=== PATIENT | female | born 1960 | race Caucasian/White ===

== ENCOUNTER → 2018-10-12 | Outpatient (CLI) | payer OTHER ==
[~2018-10-12] MED LIST: ALPR.5 PO; ATOR40TA PO; Aspirin EC81 MG PO; ESCI10 PO; NAPR500EC PO; Prinivil10 MG PO
[2018-10-14 15:06] LABS: HPV 16 Negative (Negative); HPV 18 Negative (Negative); HPV OTHER HR TYPES Negative (Negative)
== END | disposition home or self-care (01) ==
LOC: LAB SHORT 11:12 → LAB 11:12
PROVIDERS: Nurse Practitioner Obstetrics & Gynecology
DX: Z01.419 Encounter for gynecological examination (general) (routine) without abnormal findings (principal)
CPT/HCPCS: 87624; G0123

== ENCOUNTER → 2019-07-20 | Outpatient (CLI) | payer OTHER | END | disposition home or self-care (01) | LOC: LAB SHORT 15:29 → LAB EV 15:29 | DX: M79.672 Pain in left foot (principal) | CPT/HCPCS: 84550 ==

== ENCOUNTER 2020-04-25 06:38 | Day surgery (SDC) | payer OTHER ==
[~2020-04-25] VITALS: Ht 160 cm; Wt 97.2 kg
[~2020-04-25 06:38] MED LIST changes: +DULO30 PO
--- NOTE | 2020-04-25 06:54 | NUR ---
History, Chart, Medications and Allergies reviewed before start of procedure. Patient confirms NPO status and agrees with scheduled surgery. Son, Archie, at bedside.
--- NOTE | 2020-04-25 07:49 | NUR ---
NASAL SUPERVISOR DRIED YEAST X3 AMPULES USED TO NARES BILAT. KNEE HIGH TINO HOSE AND CALF PAS APPLIED TO RLE. PATIENT UP TO BR TO VOID.
--- NOTE | 2020-04-25 12:46 | NUR ---
04/25/20 1246 Alexandra Singh VERIFICATIONS: EDIT CHART.
--- NOTE | 2020-04-25 17:17 | NUR ---
SHIFT SUMMARY PT A&OX4, VSS, S/P L TKA, AQUACEL/MELLO WRAP CDI, DENIES N&T, TEDS/SCDS/POLAR PHILIP ON. AMBULATES HALLWAY/TO BRP W/FWW & GB; UP TO CHAIR; PHYSICAL THERAPY EVAL'D - SECOND SESSION IN A.M. MANAS PO, DENIES N&V. VOIDING WELL. PAIN MANAGED WITH 5 MG OXYCODONE, TYLENOL AND TORADOL. WILL REPORT TO ONCTARUN SCOTT RN.
[2020-04-26 04:45] LABS: BASOPHILS ABSOLUTE AUTO 0.03 K/mm3 (0.00-0.23); BASOPHILS PERCENT AUTO 0 % (0-2); EOSINOPHILS ABSOLUTE AUTO 0.02 K/mm3 (0.00-0.68); EOSINOPHILS PERCENT AUTO 0 % (0-6); Hematocrit 39.3 % (33.0-51.0); Hemoglobin 12.8 g/dL (11.5-16.0); IMMATURE GRAN ABSOLUTE AUTO 0.02 K/mm3 (0.00-0.10); IMMATURE GRAN PERCENT AUTO 0 % (0-1); LYMPHOCYTES ABSOLUTE AUTO 1.79 K/mm3 (0.84-5.20); LYMPHOCYTES PERCENT AUTO 17 % (21-46); MONOCYTES ABSOLUTE AUTO 0.91 K/mm3 (0.16-1.47); MONOCYTES PERCENT AUTO 9 % (4-13); Mean Corpuscular HGB 31.5 pg (26.0-34.0); Mean Corpuscular HGB Conc 32.6 g/dL (31.5-36.5); Mean Corpuscular Volume 97 fL (80-100); Mean Platelet Volume 10.4 fL (9.1-12.4); NEUTROPHILS ABSOLUTE AUTO 7.88 K/mm3 (1.96-9.15); NEUTROPHILS PERCENT AUTO 74 % (41-73); Platelet Count 239 K/mm3 (150-400); RDW Coefficient Variation 12.2 % (11.7-14.2); RDW Standard Deviation 44.2 fL (35.1-46.3); Red Blood Cell Count 4.06 M/mm3 (3.80-5.20); White Blood Cell Count 10.65 K/mm3 (4.00-11.30)
[2020-04-26 05:07] LABS: Anion Gap 5 mmol/L (6-16); Blood Urea Nitrogen 16 mg/dL (8-24); Bun/Creatinine Ratio 22.2 (12.0-20.0); CO2, Blood 26 mmol/L (21-32); Calcium, Blood 8.5 mg/dL (8.5-10.1); Chloride, Blood 108 mmol/L (98-108); Creatinine, Blood 0.72 mg/dL (0.40-1.00); Glomerular Filtration Rate >60 (60-); Glucose, Blood 136 mg/dL (70-99); Potassium, Blood 4.2 mmol/L (3.5-5.5); Sodium, Blood 139 mmol/L (136-145)
--- NOTE | 2020-04-26 07:15 | NUR ---
SHIFT SUMMARY POD#1. AAOX4. DISCOMFORT CONTROLLED WITH SCHEDULED TORADOL/TYLENOL + ROXICODONE Q4H. NO NAUSEA/EMESIS. DRESSING TO LEFT KNEE C/D/I. UP TO RESTROOM SBA WITH FWW + GAIT BELT. PT RESTED WELL T/O NIGHT. REPORT TO DAY SHIFT RN. DR MA AT BEDSIDE, PT CURRENTLY SITTING UP IN BED WITH CALL LIGHT IN REACH.
[2020-04-26] MEDS ORDERED: Percocet 5-3251 EACH PO (08:55)
--- NOTE | 2020-04-26 11:24 | NUR ---
DISCHARGE PT PROVIDED WITH WRITTEN AND VERBAL DISCHARGE INSTRUCTIONS, SHE REPORTS UNDERSTANDING. PT PROVIDED WITH SCRIPTS AND DRESSINGS. PT ESCORTED OUT IN W/C AND WAS ABLE TO GET INTO VEHICLE WITHOUT DIFFICULTY.
== END 2020-04-26 10:50 | disposition home or self-care (01) ==
LOC: ORSCMMR 06:38 → SURS 11:19 → ORSCMMR 12:15 → ORD 12:15 → ORSCMMR 04-26 10:50
PROVIDERS: Orthopaedic Surgery
PROC: 0SRD0JA Replacement of Left Knee Joint with Synthetic Substitute, Uncemented, Open Approach (ICD-10-PCS; principal; 2020-04-25 08:15)
DX: M17.12 Unilateral primary osteoarthritis, left knee (principal); I10 Essential (primary) hypertension; E78.00 Pure hypercholesterolemia, unspecified; E66.01 Morbid (severe) obesity due to excess calories; Z68.38 Body mass index [BMI] 38.0-38.9, adult; F32.9 Major depressive disorder, single episode, unspecified; Z79.899 Other long term (current) drug therapy; Z79.82 Long term (current) use of aspirin
CPT/HCPCS: 36415; 73560-LT; 80048; 85025; 88300; 97110; 97116; 97161; 97530; A9270; A9270-GY; C1776; J0171; J0690; J0735; J1885; J2250; J2370; J2704; J2795; J3010; J7120

== ENCOUNTER 2020-08-22 08:13 | Day surgery (SDC) | payer OTHER, SELFPAY ==
[~2020-08-22] VITALS: Ht 160 cm; Wt 95.0 kg
[~2020-08-22 08:13] MED LIST changes: +ASPI81CH PO; +Percocet 5-3251 EACH PO
--- NOTE | 2020-08-22 09:51 | NUR ---
Ambulatory in Day Surgery Surgical site prepped with 2% Chlorhexidine cloth wipe. History, Chart, Medications and Allergies reviewed before start of procedure.Lungs clear T/O to Auscultation. Patient confirms NPO status and agrees with scheduled surgery. PT UP TO THE BATHROOM AT 0951. TOOK ALL OREDERED PO MEDS WITH A SIP OF WTER. PT STATES SHE FEELS LESS ANXIOUS AT THIS TIME. PROVIDED A CALM AND RELAXING ENVIRONMENT.
--- NOTE | 2020-08-22 18:36 | NUR ---
SHIFT SUMMARY PT IS POD#0 FROM R TKA WITH DR. CORONADO. PAIN HAS BEEN MANAGED WITH PO PAIN MEDICATION. PT WORKED WITH THERAPY TODAY. PT TOLERATING PO. PT HAS VOIDED. BP HAS BEEN LOW NORMAL AND PT HAS BEEN ASYMPTOMATIC, PT HAS LR FOR MAINTENANCE FLUID. PT ENCOURAGED TO DRINK FLUIDS. VSS. WILL MONITOR UNTIL REPORT TO SONIA BAER.
[2020-08-23 04:23] LABS: BASOPHILS ABSOLUTE AUTO 0.04 K/mm3 (0.00-0.23); BASOPHILS PERCENT AUTO 1 % (0-2); EOSINOPHILS ABSOLUTE AUTO 0.22 K/mm3 (0.00-0.68); EOSINOPHILS PERCENT AUTO 4 % (0-6); Hematocrit 37.1 % (33.0-51.0); IMMATURE GRAN ABSOLUTE AUTO 0.01 K/mm3 (0.00-0.10); IMMATURE GRAN PERCENT AUTO 0 % (0-1); LYMPHOCYTES ABSOLUTE AUTO 1.78 K/mm3 (0.84-5.20); LYMPHOCYTES PERCENT AUTO 29 % (21-46); MONOCYTES ABSOLUTE AUTO 0.67 K/mm3 (0.16-1.47); MONOCYTES PERCENT AUTO 11 % (4-13); Mean Corpuscular HGB 30.8 pg (26.0-34.0); Mean Corpuscular HGB Conc 32.3 g/dL (31.5-36.5); Mean Corpuscular Volume 95 fL (80-100); Mean Platelet Volume 9.8 fL (9.1-12.4); NEUTROPHILS ABSOLUTE AUTO 3.47 K/mm3 (1.96-9.15); NEUTROPHILS PERCENT AUTO 56 % (41-73); Platelet Count 205 K/mm3 (150-400); RDW Coefficient Variation 14.6 % (11.7-14.2); RDW Standard Deviation 51.8 fL (35.1-46.3); White Blood Cell Count 6.19 K/mm3 (4.00-11.30)
[2020-08-23 04:40] LABS: Anion Gap 5 mmol/L (6-16); Blood Urea Nitrogen 14 mg/dL (8-24); Bun/Creatinine Ratio 18.6 (12.0-20.0); CO2, Blood 28 mmol/L (21-32); Calcium, Blood 8.2 mg/dL (8.5-10.1); Chloride, Blood 107 mmol/L (98-108); Creatinine, Blood 0.75 mg/dL (0.40-1.00); Glomerular Filtration Rate >60 (60-); Glucose, Blood 110 mg/dL (70-99); Sodium, Blood 140 mmol/L (136-145)
--- NOTE | 2020-08-23 05:43 | NUR ---
SHIFT SUMMARY LYING IN SEMI FOWLERS WITH EYES CLOSED, HAS RESTED WELL THROUGHOUT SHIFT. MEDICATED FOR PAIN WITH OXY X1. POLAR PHILIP IN PLACE TO SURGICAL SITE AND PT REPOSITIONES FOR COMFORT. ASSISTED TO BATHROOM SEVERAL TIMES TO URINATE. LEFT FA SL PIV IS PATENT, FLUSHES WITH EASE. AQUACEL AND MELLO WRAP TO RIGHT KNEE ARE C/D/I. GOOD DISTAL PULSES NOTED. ABLE TO WIGGLE TOES WITH EASE. DENIES FURTHER NEEDS OR WANTS AT THIS TIME. SAFETY MEASURES IN PLACE. WILL CONTINUE TO MONITOR AND GIVE HAND OFF TO ONCOMING SHIFT USING SBAR DURING BEDSIDE REPORT.
[2020-08-23] MEDS ORDERED: Percocet 5-3251 EACH PO (09:44)
--- NOTE | 2020-08-23 11:00 | NUR ---
DISCHARGE PT CLEARED THERAPY. PAIN WELL CONTROLLED. EATING, DRINKING, VOIDING WELL. SCRIPTS, DRSGS, & POLAR PACK SENT. ESCORTED OUT VIA W/C.
== END 2020-08-23 11:30 | disposition home or self-care (01) ==
LOC: ORSCMMR 08:13 → ORD 09:45 → ORSCMMR 09:45 → SURS 13:04 → ORSCMMR 08-23 11:30
PROVIDERS: Orthopaedic Surgery
PROC: 0SRC0JA Replacement of Right Knee Joint with Synthetic Substitute, Uncemented, Open Approach (ICD-10-PCS; principal; 2020-08-22 09:45)
DX: M17.11 Unilateral primary osteoarthritis, right knee (principal); I10 Essential (primary) hypertension; E66.01 Morbid (severe) obesity due to excess calories; Z68.37 Body mass index [BMI] 37.0-37.9, adult; Z79.899 Other long term (current) drug therapy
CPT/HCPCS: 36415; 73560-RT; 80048; 85025; 88300; 97110; 97116; 97162; A9270; C1776; J0171; J0690; J0735; J1885; J2250; J2370; J2704; J2795; J7120